=== PATIENT | female | born 1940 | race Caucasian/White ===

== ENCOUNTER → 2016-08-16 | Outpatient (CLI) | payer OTHER, MEDICARE | LOC: FIMAGING 12:02 | DX: Z12.31 Encounter for screening mammogram for malignant neoplasm of breast (principal) | CPT/HCPCS: G0202 ==

== ENCOUNTER 2016-10-09 11:17 | Emergency (ER) | payer OTHER, MEDICARE ==
[2016-10-09] MEDS ORDERED: NS 1,000 ML IV ONE (11:50)
--- NOTE | 2016-10-09 11:52 | EDPHY ---
H & P Stated Complaint: pt states had fast hr and palpitations/not apparent at triage Source: Patient Exam Limitations: No limitations - Personal History Current Tetanus/Diphtheria Vaccine: Unsure - Medical/Surgical History Hx Asthma: No Hx Chronic Respiratory Disease: No Hx Diabetes: No Hx Cardiac Disease: No Hx Renal Disease: No Hx Cirrhosis: No Hx Alcoholism: No Hx HIV/AIDS: No Hx Splenectomy or Spleen Trauma: No Other PMH: glaucoma/tachycardia - Social History Smoking Status: Never smoked HPI/ROS: CHIEF COMPLAINT: Palpitations, irregular heartbeat HISTORY OF PRESENT ILLNESS: Patient complains of awaking late last night with a regular and rapid heartbeat. She could feel her heart beating but was not painful. [place] irregular to her with some pauses. This lasted for nearly an hour. She took a 25 mg metoprolol that she had from a previous incidence of this in April. Went back to sleep. She said she woken her heart rate was fast but slower than prior. She felt that at approximately 98 beats per minute. She went to an urgent care and they sent her here for higher level of care. She has had no chest pain or shortness of breath. No syncope or lightheadedness. No dizziness. No abdominal urinary complaints. No recent illness. No cough. Previous incidence of elevated heart rate in April in [place]. She is not of the formal diagnosis but she describes it as a likely SVT scenario. No cardioversion. She was prescribed metoprolol which she still has an took last night. No other associated complaints or modifying factors. FAMILY HISTORY CARDIAC: Denies PRIOR CARDIAC WORKUP: No previous stress test or heart catheterization REVIEW OF SYSTEMS: Ten systems reviewed and are negative unless otherwise noted in the HPI EXAMINATION: General Appearance: Alert, no distress Head: normocephalic, atraumatic Eyes: Pupils equal and round, no conjunctival pallor or injection ENT, Mouth: Mucous membranes moist Neck: Normal inspection, supple, non-tender Respiratory: Lungs are clear to auscultation. No wheezing, rhonchi or crackles. Cardiovascular: Regular rate and rhythm. No murmur. Pulses intact distally Gastrointestinal: Abdomen is soft and nontender Back: non-tender, no bony abnormalities Neurological: GCS 15. Cranial nerves 2-12 grossly intact A&O, nonfocal, normal gait Skin: Warm and dry, no rash Extremities: Nontender, no pedal edema Psychiatric: Mood and affect normal DIFFERENTIAL DIAGNOSES: Including but not limited to in no particular order: Acute Chest Pain, ACS, Stable Angina, Pneumonia, PE, duodenitis, gastritis, esophagitis, GERD MDM: 11:50 a.m. Reports of palpitations and irregular heartbeat overnight. No chest pain of any kind. No abnormality on current examination or EKG that suggest acute ischemia. Laboratory studies, chest x-ray been ordered. She will remain on a radiation monitor here in the emergency department. 12:35 p.m. CBC is unremarkable. Troponin and electrolytes are pending. She is in no acute distress with no changes on her radiation monitor thus far. No chest pain at this time. 1:30 p.m. Laboratory studies within normal limits including a negative troponin. Blood sugar was mildly low thus I recheck that. It is currently 87. She still has no return of the chest pain. She will be discharged home stable condition. She is instructed follow up with primary care physician and Cardiology for further care. Return here for any chest pain. Return here for return of the palpitations or irregular rhythm. She is comfortable with this plan and will follow up accordingly. EKG: Interpreted by Dr. Collazo SUPERVISION: Patient was evaluated in conjunction with the supervising physician. Please see their note for details. (Rubin Panchal) Constitutional: Initial Vital Signs Temperature (C) 36.4 C 10/09/16 11:19 Heart Rate 68 10/09/16 11:19 Respiratory Rate 16 10/09/16 11:19 Blood Pressure 128/72 H 10/09/16 11:19 O2 Sat (%) 97 10/09/16 11:19 O2 Delivery Mode Room Air Allergies/Adverse Reactions: No Known Allergies Allergy (Unverified 10/09/16 11:19) Home Medications: Medication Instructions Recorded NK [No Known Home Meds] 10/09/16 Medical Decision Making - Diagnostics EKG Interpretation: 12-lead EKG interpreted by me; official reading is in trace master. My interpretation is sinus rhythm with left anterior fascicular block, low voltage , no acute ischemic changes. (Fidel Collazo) Imaging Results: Imaging Impressions Chest X-Ray 10/09/16 11:51 Impression: No acute findings in the chest. Other Provider: PHYSICIAN DOCUMENTATION: The patient was evaluated and managed by the Physician Metropolitan Editor and myself. I have reviewed the chart and agree with the findings and plan of care as documented; exception is she never related any chest pain to me at any time. In addition, I examined the patient myself at 1249. History confirmed as episode of what the patient thinks was SVT evaluated in [place] in April 2016. She had evaluation including echocardiogram and cardiology consult, and was told she can take metoprolol if she gets symptoms. Physical findings as follows: Regular rate rhythm without murmur. Patient does not have red flags to suggest she is at high risk for malignant dysrhythmia. I think it is reasonable to have her discharged and follow up with her primary care provider, Cardiology referral to consider monitor as an outpatient. I am the secondary supervising physician. (Fidel Collazo) - Data Points Laboratory Results: Laboratory Results 10/09/16 12:13 10/09/16 12:13 10/09/16 10/09/16 10/09/16 13:20 12:13 12:13 WBC RBC Hgb POC Hgb 13.3 gm/dL gm/dL (12.6-16.3) Hct POC Hct 39 % % (38-47) MCV MCH MCHC RDW Plt Count MPV Neut % (Auto) Lymph % (Auto) [place] % (Auto) Eos % (Auto) Baso % (Auto) Nucleat RBC Rel Count Absolute Neuts (auto) Absolute Lymphs (auto) Absolute Monos (auto) Absolute Eos (auto) Absolute Basos (auto) Absolute Nucleated RBC Immature Gran % Immature Gran # PT 13.0 SEC SEC (12.0-15.0) INR 0.99 (0.83-1.16) APTT 27.0 SEC SEC (23.0-38.0) POC Sodium 137 mEq/L mEq/L (134-144) Sodium 131 mEq/L L mEq/L (134-144) POC Potassium 3.9 mEq/L mEq/L (3.3-5.0) Potassium 4.3 mEq/L mEq/L (3.5-5.2) POC Chloride 100 mEq/L mEq/L (97-110) Chloride 98 mEq/L mEq/L (97-110) Carbon Dioxide 25 mEq/l mEq/l (22-31) Anion Gap 8 mEq/L mEq/L (8-16) POC BUN 20 mg/dL mg/dL (7-23) BUN 19 mg/dL mg/dL (7-23) Creatinine 0.7 mg/dL mg/dL (0.6-1.0) POC Creatinine 0.7 mg/dL mg/dL (0.6-1.0) Estimated GFR > 60 Glucose 68 mg/dL L mg/dL (70-100) POC Glucose 87 mg/dL mg/dL (70-100) Calcium 9.5 mg/dL mg/dL (8.5-10.4) Magnesium 2.0 mg/dL mg/dL (1.6-2.3) Troponin I < 0.012 ng/mL ng/mL (0-0.034) TSH 3.630 uIU/mL uIU/mL (0.465-4.680) 10/09/16 12:13 WBC 5.61 10^3/uL 10^3/uL (3.80-9.50) RBC 4.35 10^6/uL 10^6/uL (4.18-5.33) Hgb 13.9 g/dL g/dL (12.6-16.3) POC Hgb Hct 40.4 % % (38.0-47.0) POC Hct MCV 92.9 fL fL (81.5-99.8) MCH 32.0 pg pg (27.9-34.1) MCHC 34.4 g/dL g/dL (32.4-36.7) RDW 12.5 % % (11.5-15.2) Plt Count 231 10^3/uL 10^3/uL (150-400) MPV 10.1 fL fL (8.7-11.7) Neut % (Auto) 56.3 % % (39.3-74.2) Lymph % (Auto) 24.1 % % (15.0-45.0) [place] % (Auto) 11.9 % % (4.5-13.0) Eos % (Auto) 6.1 % % (0.6-7.6) Baso % (Auto) 1.4 % % (0.3-1.7) Nucleat RBC Rel Count 0.0 % % (0.0-0.2) Absolute Neuts (auto) 3.16 10^3/uL 10^3/uL (1.70-6.50) Absolute Lymphs (auto) 1.35 10^3/uL 10^3/uL (1.00-3.00) Absolute Monos (auto) 0.67 10^3/uL 10^3/uL (0.30-0.80) Absolute Eos (auto) 0.34 10^3/uL 10^3/uL (0.03-0.40) Absolute Basos (auto) 0.08 10^3/uL 10^3/uL (0.02-0.10) Absolute Nucleated RBC 0.00 10^3/uL 10^3/uL (0-0.01) Immature Gran % 0.2 % % (0.0-1.1) Immature Gran # 0.01 10^3/uL 10^3/uL (0.00-0.10) PT INR APTT POC Sodium Sodium POC Potassium Potassium POC Chloride Chloride Carbon Dioxide Anion Gap POC BUN BUN Creatinine POC Creatinine Estimated GFR Glucose POC Glucose Calcium Magnesium Troponin I TSH Medications Given: Discontinued Medications Sodium Chloride (Ns) 1,000 mls @ 0 mls/hr IV ONCE ONE; Wide Open PRN Reason: Protocol Stop: 10/09/16 11:51 Last Admin: 10/09/16 12:13 Dose: 1,000 mls Point of Care Test Results: 10/09/16 13:20 POC Sodium 137 POC Potassium 3.9 POC Chloride 100 POC BUN 20 POC Creatinine 0.7 POC Glucose 87 Departure - Departure Disposition: Home, Routine, Self-Care Clinical Impression: Palpitations Condition: Good Instructions: Palpitations (ED) Additional Instructions: I. Follow up with primary care physician this week. 2. Follow up with Cardiology 3. Return to the emergency department for any chest pain, return of the palpitations or dysrhythmia Referrals: Tara Jeffers MD [Primary Care Provider] - As per Instructions [facility] [Provider Group] - As per Instructions
[2016-10-09 12:24] LABS: % IMMATURE GRANULYOCYTES 0.2 % (0.0-1.1); ABSOLUTE IMMATURE GRANULOCYTES 0.01 10^3/uL (0.00-0.10); ADD DIFF? NO; ADD MORPH? NO; ADD SCAN? NO; ATYPICAL LYMPHOCYTE FLAG 0 (0-99); FRAGMENT RBC FLAG 0 (0-99); HEMATOCRIT 40.4 % (38.0-47.0); HEMOGLOBIN 13.9 g/dL (12.6-16.3); LEFT SHIFT FLG 0 (0-99); LIPEMIA HEMOLYSIS FLAG 90 (0-99); MEAN CELL HEMOGLOBIN CONCENTR. 34.4 g/dL (32.4-36.7); MEAN CELL VOLUME 92.9 fL (81.5-99.8); MEAN PLATELET VOLUME 10.1 fL (8.7-11.7); PLATELET CLUMPS FLAG 0 (0-99); PLATELET COUNT 231 10^3/uL (150-400); RED BLOOD CELL COUNT 4.35 10^6/uL (4.18-5.33); RED CELL DISTRIBUTION WIDTH 12.5 % (11.5-15.2)
[2016-10-09 12:36] VITALS: PULSE 64
[2016-10-09 12:38] LABS: ANION GAP 8 mEq/L (8-16); CALCIUM 9.5 mg/dL (8.5-10.4); CARBON DIOXIDE 25 mEq/l (22-31); CHLORIDE 98 mEq/L (97-110); CREATININE 0.7 mg/dL (0.6-1.0); GLOMERULAR FILTRATION RATE > 60; GLUCOSE 68 mg/dL (70-100); POTASSIUM 4.3 mEq/L (3.5-5.2); SODIUM 131 mEq/L (134-144)
[2016-10-09 12:40] LABS: INR 0.99 (0.83-1.16)
[2016-10-09 12:49] LABS: TROPONIN I < 0.012 ng/mL (0-0.034)
[2016-10-09 13:13] VITALS: BP 146/88; RESP 18; TEMP 98.4; O2SAT 95
--- NOTE | 2016-10-13 07:45 | CPEKG ---
Heart Rate: 64 RR Interval: 938 P-R Interval: 164 QRSD Interval: 86 QT Interval: 392 QTC Interval: 405 P [place]: 82 QRS [place]: -73 T Wave [place]: 67 EKG Severity - ABNORMAL ECG - EKG Impression: SINUS RHYTHM EKG Impression: LEFT ANTERIOR FASCICULAR BLOCK EKG Impression: LOW VOLTAGE THROUGHOUT EKG Impression: BORDERLINE R WAVE PROGRESSION, ANTERIOR LEADS EKG Impression: NONSPECIFIC T ABNORMALITIES, ANTERIOR LEADS Electronically Signed By: Alex Chan 15-Oct-2016 10:55:37
== END 2016-10-09 13:42 | disposition home or self-care (01) ==
DX: R00.2 Palpitations (principal)
CPT/HCPCS: 82947-QW

== ENCOUNTER → 2016-10-12 | Outpatient (CLI) | payer OTHER, MEDICARE | LOC: FIMAGING 13:29 | PROVIDERS: ATTEND Internal Medicine | DX: Z13.820 Encounter for screening for osteoporosis (principal); M85.80 Other specified disorders of bone density and structure, unspecified site; Z78.0 Asymptomatic menopausal state ==

== ENCOUNTER → 2018-01-16 | Outpatient (CLI) | payer OTHER, MEDICARE | LOC: BHFA 13:00 | PROVIDERS: ATTEND Internal Medicine Interventional Cardiology | DX: I47.1 Supraventricular tachycardia (principal) ==

== ENCOUNTER 2018-02-21 08:53 | Observation (INO) | payer OTHER, MEDICARE ==
--- NOTE | 2018-02-21 09:36 | EDPHY ---
H & P Stated Complaint: weakness- fatigue, syncopal episode this am, active shingles Time Seen by Provider: 02/21/18 09:32 HPI/ROS: HPI: This is a 77-year-old female who presents with Chief Complaint: weakness- fatigue, syncopal episode this am, active shingles Location: Left side of face Quality: Shingles Duration: 8 days ago Signs and Symptoms: + fever, no nausea, no vomiting, no diarrhea, no urinary symptoms, no chest pain, no shortness of breath, no wheezing, no cough, no sore throat, no neck stiffness, no joint pain, no swollen glands, no ear pain, no rash Timing: Worse Severity: Moderate Context: Patient has a history of SVT, started to feel pain in her face and thought it was her tooth so went to the dentist on Tuesday. Tuesday she developed a rash on the left side of her face sparing her eye. Tuesday she was diagnosed with shingles by her primary care provider started on Valtrex. Patient notes increased fatigue and decreased intake over the last several days. This morning she was getting up to go to the bathroom when she started to feel lightheaded and dizzy. Patient grabbed the wall/railing to help break her fall. She denies hitting her head, neck injury. She reports that she "blacked out for a few seconds." She denies any incontinence, tongue biting. She has no urinary symptoms. Patient denies neck stiffness. She did have a fever of T-max a 101 F last night. Denies cough, sore throat, runny nose. Patient denies any pain from the shingles at this time. Modifying Factors: Valtrex Comment: ROS: A comprehensive 10 system review of systems is otherwise negative aside from elements mentioned in the history of present illness. MEDICAL/SURGICAL/SOCIAL HISTORY: Medical history: glaucoma, SVT, shingles 02/09 Surgical history: Denies Social history: Never smoked. Family history noncontributory. CONSTITUTIONAL: Ill but nontoxic-appearing elderly white female, awake and alert, no obvious distress HEENT: Atraumatic and normocephalic, PERRL, EOMI. Nares patent; no rhinorrhea. Tympanic membranes clear. Oropharynx clear, no exudate and dry oral mucosa. Airway patent. No lymphadenopathy. No meningismus. Cardiovascular: Normal S1/S2, regular rate, regular rhythm, without murmur rub or gallop. PULMONARY/CHEST: Symmetrical and nontender. Clear to auscultation bilaterally. Good air movement. No accessory muscle usage. ABDOMEN: Soft, nondistended, nontender, no rebound, no guarding, no peritoneal signs, no masses or organomegaly. No CVAT. EXTREMITIES: 2/2 pulses, strength 5/5, no deformities, no clubbing, no cyanosis or edema. NEUROLOGICAL: no focal neuro deficits. GCS 15. SKIN: Warm and dry, rash noted in dermatomal pattern to her left forehead sparing her eye. pallor, no erythema. no rash. Good capillary refill. Source: Patient Exam Limitations: No limitations - Medical/Surgical History Hx Asthma: No Hx Chronic Respiratory Disease: No Hx Diabetes: No Hx Cardiac Disease: No Hx Renal Disease: No Hx Cirrhosis: No Hx Alcoholism: No Hx HIV/AIDS: No Hx Splenectomy or Spleen Trauma: No Other PMH: glaucoma, SVT. shingles 02/09 - Social History Smoking Status: Never smoked Constitutional: Initial Vital Signs Temperature (C) 37.2 C 02/21/18 08:59 Heart Rate 78 02/21/18 08:59 Respiratory Rate 18 02/21/18 08:59 Blood Pressure 121/71 H 02/21/18 08:59 O2 Sat (%) 95 02/21/18 08:59 O2 Delivery Mode Room Air Allergies/Adverse Reactions: latex Allergy (Verified 02/21/18 10:05) Home Medications: Medication Instructions Recorded Latanoprost 0.005% [Xalatan 0.005% 1 drops EACHEYE HS 02/21/18 (*)] valACYclovir [Valtrex (*)] 500 mg PO TID 02/21/18 Medical Decision Making ED Course/Re-evaluation: Vital signs reviewed and placed on contracts advisor upon arrival. No systemic signs. IV access and laboratory studies obtain. Urinalysis and EKG ordered. Given 1 L normal saline. Shingles appears to be non disseminated, no ocular or neurologic involvement. 0955: Lactic acid 1.1, WBC 6 K, H&H stable, sodium 127, chloride 92, creatinine 0.1. Normal LFTs. 1005: EKG my read shows normal sinus rhythm, left anterior fascicular block. Reviewed by attending. ED decision to consult for admission for syncope and collapse, shingles, hyponatremia. Spoke with Jessica who kindly agrees to admit patient to med surg to Dr. Sinai Baldwin. Urinalysis results pending at time of consult. This patient was seen under the supervision of my secondary supervising physician. I evaluated care for this patient independently. Discussed this patient with Dr. Castañeda. Differential Diagnosis: Syncope including but not limited to vasovagal syncope, arrhythmia, dehydration , and blood loss. - Data Points Laboratory Results: Laboratory Results 02/21/18 09:33 02/21/18 09:33 02/21/18 02/21/18 02/21/18 10:11 09:47 09:33 WBC RBC Hgb Hct MCV MCH MCHC RDW Plt Count MPV Neut % (Auto) Lymph % (Auto) [place] % (Auto) Eos % (Auto) Baso % (Auto) Nucleat RBC Rel Count Absolute Neuts (auto) Absolute Lymphs (auto) Absolute Monos (auto) Absolute Eos (auto) Absolute Basos (auto) Absolute Nucleated RBC Immature Gran % Immature Gran # ESR VBG Lactic Acid 1.1 mmol/L mmol/L (0.7-2.1) Sodium 127 mEq/L L mEq/L (135-145) Potassium 3.9 mEq/L mEq/L (3.3-5.0) Chloride 92 mEq/L L mEq/L (97-110) Carbon Dioxide 24 mEq/l mEq/l (22-31) Anion Gap 11 mEq/L mEq/L (6-14) BUN 19 mg/dL mg/dL (7-23) Creatinine 0.7 mg/dL mg/dL (0.6-1.0) Estimated GFR > 60 Glucose 105 mg/dL H mg/dL (70-100) Calcium 9.7 mg/dL mg/dL (8.5-10.4) Total Bilirubin 0.8 mg/dL mg/dL (0.1-1.4) Conjugated Bilirubin 0.1 mg/dL mg/dL (0.0-0.5) Unconjugated Bilirubin 0.7 mg/dL mg/dL (0.0-1.1) AST 25 IU/L IU/L (14-46) ALT 26 IU/L IU/L (9-52) Alkaline Phosphatase 82 IU/L IU/L (38-126) POC Troponin I 0.01 ng/mL ng/mL (0.00-0.08) C-Reactive Protein < 5.0 mg/L mg/L (<10.0) Total Protein 7.7 g/dL g/dL (6.3-8.2) Albumin 4.4 g/dL g/dL (3.5-5.0) 02/21/18 09:33 WBC 6.56 10^3/uL 10^3/uL (3.80-9.50) RBC 4.79 10^6/uL 10^6/uL (4.18-5.33) Hgb 15.1 g/dL g/dL (12.6-16.3) Hct 43.1 % % (38.0-47.0) MCV 90.0 fL fL (81.5-99.8) MCH 31.5 pg pg (27.9-34.1) MCHC 35.0 g/dL g/dL (32.4-36.7) RDW 12.8 % % (11.5-15.2) Plt Count 224 10^3/uL 10^3/uL (150-400) MPV 10.2 fL fL (8.7-11.7) Neut % (Auto) 69.8 % % (39.3-74.2) Lymph % (Auto) 20.1 % % (15.0-45.0) [place] % (Auto) 8.4 % % (4.5-13.0) Eos % (Auto) 0.6 % % (0.6-7.6) Baso % (Auto) 0.8 % % (0.3-1.7) Nucleat RBC Rel Count 0.0 % % (0.0-0.2) Absolute Neuts (auto) 4.58 10^3/uL 10^3/uL (1.70-6.50) Absolute Lymphs (auto) 1.32 10^3/uL 10^3/uL (1.00-3.00) Absolute Monos (auto) 0.55 10^3/uL 10^3/uL (0.30-0.80) Absolute Eos (auto) 0.04 10^3/uL 10^3/uL (0.03-0.40) Absolute Basos (auto) 0.05 10^3/uL 10^3/uL (0.02-0.10) Absolute Nucleated RBC 0.00 10^3/uL 10^3/uL (0-0.01) Immature Gran % 0.3 % % (0.0-1.1) Immature Gran # 0.02 10^3/uL 10^3/uL (0.00-0.10) ESR 7 MM/HR MM/HR (0-30) VBG Lactic Acid Sodium Potassium Chloride Carbon Dioxide Anion Gap BUN Creatinine Estimated GFR Glucose Calcium Total Bilirubin Conjugated Bilirubin Unconjugated Bilirubin AST ALT Alkaline Phosphatase POC Troponin I C-Reactive Protein Total Protein Albumin Medications Given: Discontinued Medications Sodium Chloride (Ns) 1,000 mls @ 0 mls/hr IV ONCE ONE; Wide Open PRN Reason: Protocol Stop: 02/21/18 09:41 Last Admin: 02/21/18 09:53 Dose: 1,000 mls Point of Care Test Results: Chemistry 02/21/18 10:11 POC Troponin I 0.01 ng/mL ng/mL (0.00-0.08) Departure - Departure Disposition: [facility] Inpatient Acute Clinical Impression: Generalized weakness, Syncope and collapse, Hyponatremia Shingles Qualifiers: Herpes zoster complications: without complications Qualified Code(s): B02.9 - Zoster without complications Condition: Fair
[2018-02-21] MEDS ORDERED: NS 1,000 ML IV ONE (09:40)
[2018-02-21 09:52] LABS: PLATELET COUNT 224 10^3/uL (150-400)
[2018-02-21] MEDS ORDERED: ONDANSETRON 4 MG/2 ML VIAL IVP PRN (12:35)
[2018-02-21] MEDS ORDERED: ONDANSETRON DISINTEGRATING 4 MG TAB PO PRN (12:35)
[2018-02-21] MEDS ORDERED: ACETAMINOPHEN 325 MG TAB PO PRN (12:35)
--- NOTE | 2018-02-21 13:11 | GHP ---
DATE OF ADMISSION: 02/21/2018 CHIEF COMPLAINT: Syncope. HISTORY OF PRESENT ILLNESS: The patient is a 77-year-old who is relatively healthy, but recently opal gnosed with shingles. She said she got diagnosed about a week ago. She went to see her primary care provider on Tuesday, was told she had shingles and was prescribed Valtrex at that time. She says she tends to get dehydrated and has a tendency to low sodium, as well. She does realize she has been not eating or drinking as much since she has had the shingles due to pain and just feeling poorly. Last night, she said that she started to feel lightheaded. She never fainted, but just was feeling a little woozy when she was up walking around, but managed; however, this morning when she was in the bathroom having a bowel movement, she blacked out. She does not recall having symptoms; however, she was aware enough when she was blacking out that she grabbed the handle and did not injure herself wh en she fell off the toilet. She woke up on the floor without any injury and came into the ER for fur ther evaluation and treatment. She did have a fever last night. She also had a viral illness prior to her shingles outbreak over the last few weeks; however, that has improved. She also feels like he r immune system is down because she has had poor sleep over the last month due to her humidifier bein g broken. She has a tendency for sinus issues, and the humidifier usually lets her sleep well at [facility]; however, since this has been broken, she has been sleeping poorly. She denies any palpitations, chest pain, shortness of breath, or cough. She has had no nausea, vomiting, diarrhea. No lower extr emity swelling, edema. No numbness, tingling, or weakness. She just mainly complains of pain on the left side of her face and into her ear. This makes it uncomfortable for her to get her hearing aids in. REVIEW OF SYSTEMS: A 10-point review of systems was done with pertinent positives present in the His tory of Present Illness. PAST MEDICAL HISTORY: 1. SVT treated by Dr. Hammond. She takes diltiazem as needed. 2. Hepatitis C status post treatment. She is in remission. 3. Glaucoma. 4. Anxiety. SOCIAL HISTORY: She has 1 brother. She is a former alcohol drinker, she is currently sober. She us ed to smoke tobacco, but quit when she was 45 years old. She currently lives alone. She has no chil dren. FAMILY HISTORY: Brother had a CABG x4 at age 70. Father of pneumonia at age 95. Mother a t age 59 from a cerebral hemorrhage. CURRENT MEDICATIONS: Include Valtrex. She also takes diltiazem on an as-needed basis for SVT, and s he takes eyedrops for her glaucoma. ALLERGIES: Adhesive tape, but no known drug allergies. PHYSICAL EXAMINATION: VITAL SIGNS: She is afebrile. Heart rate is 79, blood pressure 117/79, respi rations 16, she is 99% on room air. GENERAL: She is a very pleasant 77-year-old woman. She is in n o distress. She is alert and oriented. HEENT: She has a blistery rash on her left frontal area. I t does not involve the eye. NECK: Supple. No adenopathy. HEART: Regular without murmur, gallop, or rub. She has no bruits. Peripheral pulses intact. LUNGS: Clear to auscultation without wheeze, rhonchi, or rales. ABDOMEN: Soft, nontender, no masses. EXTREMITIES: No edema. MUSCULOSKELETAL: No joint deformities or effusions. SKIN: Intact, except for the zoster rash on her forehead. PSY CHIATRIC: She is appropriate. Her mood is normal. NEUROLOGIC: She moves all 4 extremities. LABORATORY DATA: CBC is within normal limits. Chemistry is notable for a sodium of 127. LFTs are n ormal. Urinalysis is unremarkable. Electrocardiogram was personally reviewed and interpreted and sh ows sinus rhythm. She does have poor R-wave progression, but no ischemic changes. ASSESSMENT AND PLAN: A 77-year-old with syncopal episode, likely vasovagal in nature given the fact that she has been dehydrated. Her sodium is slightly low, and she has been ill. She currently feels better, and her evaluation so far is normal. 1. Syncope plan: a. Admit to telemetry and monitor overnight. Will rule out for cardiac etiology with serial enzymes . b. Check echocardiogram. c. Physical Therapy/Occupational Therapy evaluation. Likely can discharge in the morning if the abo ve evaluation is normal. 2. Shingles. Continue her Valtrex. 3. Glaucoma. Continue her eye drops. 4. Deep vein thrombosis prophylaxis. The patient is low risk and in fact, she will likely be under observation and will be here less than 24 hours. Should she need an extended stay, can start deep ve nous thrombosis prophylaxis at that time. Copy requested to: /[id number]/[email or web address]
--- NOTE | 2018-02-21 14:44 | ECHO ---
[email or web address] [address] [address] Main: [phone] Fax: Transthoracic Echocardiogram Name: NAZIA MATTHEWS MR#: [id number] Study Date: 02/21/2018 Study Time: 01:18 PM Date of : 1940 Age: 77 year(s) Height: 157.5 cm (62 in.) Weight: 49.44 kg (109 lb.) BSA: 1.48 m2 Gender: Female Examination: Echo Indication: Cardiac: syncope, Hx of SVT Image Quality: Contrast: Requested by: Sinai Baldwin BP: 119 mmHg/79 mmHg Heart Rate: Rhythm: Normal sinus rhythm with ectopy Indication: Cardiac: syncope, Hx of SVT Procedure Staff [employer] Operator: Jose Armando Lyman RDCS Reading Physician: Yimi Loyd MD Requesting Provider: Conclusions: Normal global systolic LV function. EF is 65 %. Trivial mitral valve regurgitation. Trivial tricuspid valve regurgitation. Measurements: Chambers Valvular Assessment AV/MV Valvular Assessment TV/PV Normal Normal Normal Name Value Range Name Value Range Name Value Range Ao Mylene (MM): 2.8 cm (2.2 cm-3.7 AV Vmax: 1.09 m/s (1 m/s-1.7 TR Vmax: 2.17 mm/s ( - ) cm) m/s) TR PGmax: 19 mmHg ( - ) IVSd (2D): 0.7 cm (0.6 cm-1.1 AV maxP mmHg ( - ) syst. PAP: 24 mmHg ( - ) cm) LVOT Vmax: 0.82 m/s (0.7 m/s-1.1 PV Vmax: 0.77 m/s (0.6 m/s-0.9 LVDd (2D): 3.4 cm (3.9 cm-5.3 m/s) m/s) cm) MV E Vmax: 0.66 m/s ( - ) PV PGmax: 2 mmHg ( - ) LVDs (2D): 2.1 cm (2.1 cm-4 MV A Vmax: 0.86 m/s ( - ) cm) MV E/A: 0.77 ( - ) LVPWd (2D): 0.9 cm ( - ) LVEF (2D): 65 (>=54 %) Continued Measurements: Chambers Valvular Assessment AV/MV Valvular Assessment TV/PV Name Value Name Value Name Value LADs Lon.6 cm MV E' Septal: 0.08 m/s CVP (est.): 5 mmHg LA Area: 10.9 cm2 MV E/E' Septal: 8.80 LA Volume: 27 ml MV E/E' Lateral: 8.80 LA Volume Index: 18.2 ml/m2 Patient: NAZIA MATTHEWS Study Date: 02/21/2018 Page 1 of 2 01:18 PM Findings: Left Ventricle: Normal size left ventricle. No LV hypertrophy. Normal global systolic LV function. EF is 65 %. No regional wall motion abnormality. Normal diastolic LV function. Right Ventricle: Normal size right ventricle. Normal RV function. Left Atrium: The left atrium is normal in size. Right Atrium: The right atrium is normal in size. Mitral Valve: Mild mitral valve leaflet calcification is present. Trivial mitral valve regurgitation. Aortic Valve: The aortic valve is tri-leaflet. The aortic valve is normal in appearance and function. There is no significant aortic valve regurgitation. Tricuspid Valve: Trivial tricuspid valve regurgitation. Pulmonic Valve: The pulmonic valve is normal in appearance and function. There is no pulmonic regurgitation seen. Aorta: There is mild calcification of the descending aorta.. The aorta is normal. Pericardium: No pericardial effusion. (No Signature Object) Patient: NAZIA MATTHEWS Study Date: 02/21/2018 Page 2 of 2 01:18 PM [id number]
[2018-02-21] MEDS ORDERED: valACYclovir 500 MG TAB PO SCH (15:00)
--- NOTE | 2018-02-21 15:43 | ASMTCMCOM ---
CM Note CM Note Notes: Pt has been admitted with syncope. Also recently diagnosed with shingles. She lives alone in [place], no children. PT/OT evals have been ordered. Anticipate d/c with no CM needs however will continue to follow for any change in needs. Date Signed: 02/21/2018 03:43 PM Electronically Signed By:RAYO Alejandro
[2018-02-21] MEDS: NS 1,000 ML IV SCH (16:29)
--- NOTE | 2018-02-21 16:56 | CPEKG ---
Test Reason : OPEN Blood Pressure : / mmHG Vent. Rate : 073 BPM Atrial Rate : 073 BPM P-R Int : 158 ms QRS Dur : 086 ms QT Int : 405 ms P-R-T Axes : 012 -88 067 degrees QTc Int : 447 ms Sinus rhythm Left anterior fascicular block Confirmed by Keo Fountain ([id number]) on 02/21/2018 4:55:39 PM Referred By: Confirmed By:Keo Fountain
[2018-02-21] MEDS ORDERED: SODIUM CL NASAL 45 ML BTL EACHNARE PRN (18:29)
[2018-02-21] MEDS ORDERED: LATANOPROST 0.005% 2.5 ML OPHT DROPS EACHEYE SCH (21:00)
[2018-02-21] MEDS: valACYclovir 500 MG TAB PO SCH (21:48)
[2018-02-22] MEDS: NS 1,000 ML IV SCH (03:40)
[2018-02-22] MEDS: valACYclovir 500 MG TAB PO SCH (06:23)
[2018-02-22 08:51] VITALS: BP 153/86
--- NOTE | 2018-02-22 09:38 | ASMTLACE ---
REYNAE Length of stay for Answers: 1 day current admission Acuity / Level of Answers: No Care: Did the patient have an inpatient admission? Comorbidities - select Answers: Other Notes: hep c, glaucoma all that apply # of Emergency department Answers: 1-2 visits in the last 6 months Social determinants Answers: Mental health diagnosis (anxiety, depression, pers onality disorders, etc.) Score: 6 Date Signed: 02/22/2018 09:37 AM Electronically Signed By:LISA Bearden
--- NOTE | 2018-02-22 09:39 | ASMTCMCOM ---
CM Note CM Note Notes: CM spoke to TONO Correa regarding d/c POC. Therapies attempted to work w/ her today. Pt refused to work w/ therapies and accept education. Pt will d/c independent without any needs. CM available for changes. Plan: Independent Date Signed: 02/22/2018 09:38 AM Electronically Signed By:LISA Bearden
--- NOTE | 2018-02-22 15:38 | GDS ---
DISCHARGE DIAGNOSES: 1. Syncope, suspect vasovagal etiology. 2. Hyponatremia, likely hypovolemic, improved. 3. Shingles. IMAGING STUDIES AND PROCEDURES: Echocardiogram, February 21, 2018, showed normal left ventricular sys tolic function with an ejection fraction of 65%, trivial mitral regurgitation and trivial tricuspid r egurgitation. No wall motion abnormalities. HISTORY: For details, please see history and physical dated February 21, 2018. In brief, the patient is a 77-year-old female with a recent diagnosis of shingles, [facility]. Her syncope was preceded by feeling lightheaded and occurred while havi ng a bowel movement. She was admitted to the hospital for further evaluation. HOSPITAL COURSE: Patient was admitted to the cardiac telemetry unit. There was no evidence of cardi ac arrhythmia. Her history sounds consistent with a vasovagal etiology of her syncope. In addition, she appeared to be volume depleted. She was treated with normal saline. Her sodium corrected from 127 to 133. Her symptoms were completely resolved. She had negative troponins and a nonischemic EKG . Echocardiogram was unrevealing. On the day of discharge, her vital signs were stable. She wishes to discharge home. I did recommend a D-dimer to rule out pulmonary embolism, although my suspicion for this is low. The patient refused to undergo another blood test, and ultimately, I accept that as I note she has no pleuritic symptoms, no hypoxemia, no tachycardia, chest pain, or shortness of vanessa th. She is encouraged to maintain hydration, as well as salt intake. She should have close followup with her primary care. DISPOSITION: Patient was discharged home in stable condition. FOLLOWUP: Dr. Anna Gill, primary care. DISCHARGE MEDICATIONS: Please see docBeat completed outpatient medication list. There are no new m edications on discharge. She will continue valacyclovir 500 mg p.o. t.i.d. and latanoprost eyedrops as previously directed. /[id number]/MODL
== END 2018-02-22 10:20 | disposition home or self-care (01) ==
LOC: F2W 12:02
PROVIDERS: ADMIT Internal Medicine; ATTEND Hospitalist
DX: R55 Syncope and collapse (principal); E87.1 Hypo-osmolality and hyponatremia; B02.9 Zoster without complications; F41.9 Anxiety disorder, unspecified
CPT/HCPCS: 93005; 93306; 96360; 97161; 99285; G0378; G8978; G8979; G8980; 84481-90; 84484-PO